=== PATIENT | male | born 1955 | race Caucasian/White ===

== ENCOUNTER 2019-10-19 10:44 | Observation (INO) | payer MEDICARE, OTHER, SELFPAY ==
[2019-10-19] VITALS (17 sets, daily range): BP systolic 85–135; BP diastolic 52–86; PULSE 69–89; RESP 14–27; TEMP 36.6–36.9; O2SAT 93–100; BMI 31.8
--- NOTE | ~2019-10-19 | XR_ITS ---
EXAMINATION: XR chest 1V portable EXAM DATE: 10/19/2019 11:35 INDICATION: Anaphylaxis. TECHNIQUE: Portable AP frontal chest x-ray was obtained. There is no prior study for comparison. FINDINGS: The lungs are clear. There are no pleural effusions. Cardiac silhouette is prominent but magnified on this AP technique. There is no pneumothorax suspected. The bones and soft tissues are unremarkable. IMPRESSION: No acute cardiopulmonary findings. Reviewed, dictated and finalized at location A.
--- NOTE | 2019-10-19 10:44 | ED.ALLEREA ---
HPI - Allergic Reaction General Chief complaint: Allergic Reaction Stated complaint: Bee Sting Time Seen by Provider: 10/19/19 10:44 Source: patient and EMS Mode of arrival: EMS Limitations: clinical condition History of Present Illness HPI narrative: Patient is a 64-year-old with a history of hypertension, hyperlipidemia who presents via EMS for severe allergic reaction. Patient reportedly stung by a bee while he was out walking this morning, initially did fine over the first hour with mild ankle pain at the site of the envenomation, patient felt increasingly diaphoretic, weak, EMS was called and on arrival to patient he was diaphoretic, urticaria throughout body and hypotensive. Patient was given intramuscular epinephrine in the field, IV Decadron, Benadryl without much improvement in his hypotension. On arrival to our facility, patient is diaphoretic, hypotensive, airway is intact. Patient is reporting mild chest pressure. He has some mild aching pain in the left ankle at the site of the envenomation. Patient reports no history of anaphylactic reactions or allergic reactions in the past. Related Data Home Medications Medication Instructions Recorded Confirmed allopurinol 300 mg PO DAILY 10/19/19 amlodipine 5 mg PO DAILY 10/19/19 metoprolol succinate 50 mg PO DAILY 10/19/19 simvastatin 20 mg PO DAILY 10/19/19 Allergies Allergy/AdvReac Type Severity Reaction Status Date / Time No Known Allergies Allergy Verified 10/19/19 10:53 Review of Systems Review of Systems: ROS unobtainable: Yes unobtainable due to medical condition PMFSH Past Medical History Medical History (Updated 10/19/19 @ 12:27 by Rachna Freeman MD) Hyperlipidemia Hypertension Social History Social History (Updated 10/19/19 @ 11:08 by Rachna Freeman MD) Smoking status: Never smoker Alcohol intake: never Substance use: never Gender identity (if verbalized by the patient): Male Exam Narrative: Exam Narrative: GENERAL: Awake, conversant, diaphoretic HEAD: Normocephalic, atraumatic. EYES: PERRLA and EOMI. ENT: Nares clear, no rhinorrhea or epistaxis. Mucous membranes moist. NECK: Supple. CHEST: No respiratory distress, breathing even and non labored HEART: Regular rate, sinus rhythm ABDOMEN:Non distended, non tender EXTREMITIES: Normal range of motion. Mild edema at the left ankle SKIN: Urticaria covering body, chest and thorax NEURO:No focal deficits. Alert and oriented x3 Course Vital Signs Vital signs: Vital Signs Temperature 36.9 C 10/19/19 10:45 Pulse Rate 76 10/19/19 10:45 Respiratory Rate 15 10/19/19 10:45 Pulse Oximetry 96 10/19/19 10:45 Temperature 36.9 C 10/19/19 10:45 Pulse Rate 85 10/19/19 14:00 Respiratory Rate 16 10/19/19 13:40 Blood Pressure 118/80 10/19/19 13:40 Pulse Oximetry 94 10/19/19 13:40 MDM - Allergic Reaction MDM Narrative Medical decision making narrative: Patient presented to the emergency department for evaluation of anaphylactic shock following a bee sting. At the time of initial assessment, airway is intact, patient is hypotensive. No tachycardia. Patient was placed on oxygen via nasal cannula, given additional doses of intramuscular epinephrine. EKG showed some borderline depression without acute ST elevation. Patient was re-dose IV steroids and Benadryl as well as famotidine. Pt also placed on Duoneb. Patient finally had improvement, did require short period of time where he was on an epinephrine infusion, but this was able to be discontinued in the emergency department. Patient remained hemodynamically stable over the course of an hour, did report some increased swelling in his bilateral hands, but overall urticaria that had initially covered his entire chest and thoracic wall had improved. Patient without any recurrent shortness of breath. Given anaphylactic shock, concern for rebound, patient will be admitted to the intensive care unit. Anthony
[2019-10-19] MEDS: methylPREDNISolone SOD SUCC 125 MG VIAL IV PUSH (10:55)
[2019-10-19] MEDS: FAMOTIDINE 20 MG/2 ML VIAL IV PUSH ×2 (10:55→20:43)
[2019-10-19] MEDS: SODIUM CHLORIDE 0.9% IV 1,000 ML 999 ML IV CONT (10:55)
[2019-10-19] MEDS: ALBUTEROL SULFATE NEB 2.5 MG/0.5 ML INH 10 MG INHALATION (10:57)
[2019-10-19] MEDS: EPINEPHrine HCL INJ 1 MG/ML AMPUL 0.3 MG IM ×2 (10:57→13:55)
[2019-10-19] MEDS: IPRATROPIUM BR 0.02% INH SOLN 0.5 MG/2.5 ML VIAL 2 MG INHALATION (10:58)
[2019-10-19 11:10] LABS: Basophils Percent Auto 0.6 % (0.2-1.2); Eosinophils Absolute Auto 0.1 K/mm3 (0-0.3); Eosinophils Percent Auto 0.9 % (0-4.4); Hemoglobin 17.3 g/dL (14.0-18.0); Immature Granulocyte Absolute 0.06 K/mm3 (0.00-0.031); Immature Granulocyte Percent A 0.9 % (0-0.5); Lymphocytes Absolute Auto 2.66 K/mm3 (0.9-3.2); Lymphocytes Percent Auto 39.5 % (18.3-44.2); Mean Corpuscular HGB Conc 34.6 g/dl (32-36); Mean Corpuscular Hemoglobin 33.9 pg (26-34); Mean Corpuscular Volume 97.8 fl (80-100); Mean Platelet Volume 11.9 fl (7.4-10.4); Monocytes Absolute Auto 0.8 K/mm3 (0.1-0.6); Neutrophils Absolute Auto 3.1 K/mm3 (1.3-6.7); Neutrophils Percent Auto 46.1 % (45.5-73.1); Platelet Count Result 248 k/mm3 (150-375); Red Blood Count 5.11 M/mm3 (4.6-6.20); Red Cell Distribution Width 13.4 % (11.5-14.5); White Blood Count 6.7 K/mm3 (4.5-10.0)
[2019-10-19] MEDS: MAGNESIUM SULF 2 GM/WATER 50ML 2 GM/50 ML BAG IVPB (11:13)
[2019-10-19 11:21] LABS: Partial Thromboplastin Time 20.1 SECONDS (22.3-36.8); Prothrombin Time 12.5 Seconds (11.1-14.7)
[2019-10-19 11:25] LABS: Anion Gap 12.9 mmol/L (7-16); Blood Urea Nitrogen 25 mg/dL (9-20); Calcium 8.7 mg/dL (8.4-10.2); Carbon Dioxide 22 mmol/L (22-30); Chloride 106 mmol/L (98-107); Estimated CRCL calculation 66 ml/min; Estimated Glomerular Filt Rate > 60; Glucose 164 mg/dL (75-110); Potassium 3.9 mmol/L (3.4-5.0); Sodium 137 mmol/L (137-145)
[2019-10-19 11:26] LABS: Lactic Acid Reflex 1.8 mmol/L (0.7-2.1)
[2019-10-19] MEDS: ASPIRIN 81 MG CHEWABLE TABLET 324 MG PO (11:35)
[2019-10-19 11:37] LABS: Troponin I < 0.012 ng/mL (0.000-0.034)
--- NOTE | 2019-10-19 12:24 | ECG_ITS ---
Measurements Intervals [place] Rate: 74 P: 33 CT: 161 QRS: -16 QRSD: 99 T: 29 QT: 442 QTc: 491 Interpretive Statements SINUS RHYTHM POSSIBLE LEFT ATRIAL ENLARGEMENT BORDERLINE R WAVE PROGRESSION, ANTERIOR LEADS PROLONGED QT INTERVAL BASELINE ARTIFACT- I, III, AVL ABNORMAL ECG Electronically Signed On 10-19-2019 12:38:07 CDT by Janak Sorto D.O.
--- NOTE | 2019-10-19 12:58 | PC.NURSE ---
Per EDP via verbal order readback. Stop the epi drip at this time. Will continue to monitor Pt. status.
--- NOTE | 2019-10-19 13:20 | PC.NURSE ---
Pt. stated feeling like their allergic reaction was occuring again. EDP notified. EDP ordered via verbal order readback give 0.3 mg of epi 1:1000 IM. See Mar for charting.
[2019-10-19 14:17] LABS: Glucose Point of Care 178 (65-105)
--- NOTE | 2019-10-19 14:47 | WPDCNINT ---
Assessment and Plan Assessment and plan (1) Anaphylactic shock: Code(s): T78.2XXA - Anaphylactic shock, unspecified, initial encounter Status: Acute Assessment and Plan: patient with bee sting while heading back home from walk - patient was complaining of weakness, diaphoresis, difficulty swallowing when at home, hypotensive with systolic in the 60s in the ED requiring epinephrine shots and epinephrine infusion which has been stopped prior to transferring the patient to the ICU - he did receive a shot of epinephrine intramuscularly prior to being transferred to the ICU - currently hemodynamically stable, - will order Solu-Medrol, famotidine and Benadryl - if blood pressures dropped require (2) Bee sting: Qualifiers: Encounter type: initial encounter Injury intent: accidental or unintentional Qualified Code(s): T63.441A - Toxic effect of venom of bees, accidental (unintentional), initial encounter Code(s): T63.441A - Toxic effect of venom of bees, accidental (unintentional), initial encounter Status: Acute Assessment and Plan: patient is allergic be strainin (3) Hyperlipidemia: Qualifiers: Hyperlipidemia type: unspecified Qualified Code(s): E78.5 - Hyperlipidemia, unspecified Code(s): E78.5 - Hyperlipidemia, unspecified Status: Acute Assessment and Plan: patient on simvastatin at home, will hold for today (4) Essential hypertension: Code(s): I10 - Essential (primary) hypertension Status: Acute Assessment and Plan: patient amlodipine, metoprolol and benazepril at home - patient was hypotensive secondary to anaphylaxis, will hold all antihypertensives at this time (5) GERD (gastroesophageal reflux disease): Code(s): K21.9 - Gastro-esophageal reflux disease without esophagitis Status: Acute Assessment and Plan: continue famotidine (6) Gout: Code(s): M10.9 - Gout, unspecified Status: Acute Assessment and Plan: patient on allopurinol at home, will hold today Additional Plan discussed with patient and his at bedside updated them with patient's condition and plan of care. I did discuss with them had regarding his stay in the ICU as we would to monitor him closely due to severe hypotension secondary to the anaphylaxis due to the bee sting. Code status: Full code critical care time spent: 41 minutes Due to a high probability of clinically significant, life threatening deterioration, the patient required my highest level of preparedness to intervene emergently and I personally spent this critical care time directly and personally managing the patient. This critical care time included obtaining a history; examining the patient; pulse oximetry; ordering and review of studies; arranging urgent treatment with development of a management plan; evaluation of patient's response to treatment; frequent reassessment; and discussions with other providers. It was exclusive of separately billable procedures and treating other patients and teaching time. Please see Assessment and Plan section and the rest of the note for further information on patient assessment and treatment [employer] Consult Note Consult date: 10/19/19 Time Seen: 14:32 Reason for consult: bee sting, anaphylaxis, hypotension HPI: Mary Bustamante is a 64 year old male with significant past medical history of hypertension, hyperlipidemia with GERD, gout to the ED via EMS with severe allergic reaction after bee sting. patient was stung by a bee this morning on his way back from his walk, he felt pain at the site of the bee sting on his left ankle and then developed hives / urticaria, was diaphoretic, had some difficulty swallowing, felt weak and dizzy. EMS was called and patient was found to be hypotensive, was given intramuscular epinephrine , IV Decadron and IV Benadryl without much improvement in the hypotension. Upon arrival to
--- NOTE | 2019-10-19 14:54 | ADMGEN ---
This patient, Mary Bustamante, was admitted to Intensive Care Unit-11. Patient/family oriented to hospital policies and general routines including ID bracelet, bed and alarms, visiting hours, pain management, procedures, bathroom and other care routines, personal items, smoking policy, room service/diet, and visiting hours. Valuables list has been completed. Information on how to activate the Rapid Response Team has been discussed. Patient/Family are encouraged to report perceived risks to care and to ask questions if they do not understand what they are told or what they should do.
[2019-10-19] MEDS: methylPREDNISolone SOD SUCC 125 MG VIAL 60 MG IV PUSH ×2 (15:35→20:42)
[2019-10-19] MEDS: diphenhydrAMINE HCl INJ 50 MG/ML VIAL 25 MG IV PUSH ×2 (15:36→23:06)
[2019-10-19 15:46] LABS: Troponin I < 0.012 ng/mL (0.000-0.034)
--- NOTE | 2019-10-19 17:37 | PM.IMHP ---
H&P: HPI History of Present Illness Chief complaint: Anaphylactic shock Narrative: Mary Bustamante is a 64 year old male And was out taking a walk today. He felt something touch his head and he swung at some type of insect and he thought it flu way. He then felt a sting on his left inner ankle. And went through his sock and shoe he said. He swung at it again any saw something black fly way. The patient did not think that it was a be but may be something else. He stated that he has been stung by many B's and never had any problems with that. The patient stated that he just felt funny and that he had numbness and tingling to his hands. so he thought he better walk back to his car . the patient then felt like his chest was tight And thought that he was dehydrated. He called his and she suggested to call his doctor. once the patient got home his talked to the medical customer service representative and she suggested that they go to the emergency room. The activated the EMS. Patient was diaphoretic and had urticarial of his body. Patient was given epinephrine in the field, IV Decadron Benadryl. He was hypotensive in the field. He was given neb treatment, epinephrine x3, Solu-Medrol Pepcid, and magnesium. the investigation division lieutenant had been consulted has already seen the patient. He has been placed in ICU. Date of service 10/19/2019 Review of Systems Review of Systems: All systems reviewed & are unremarkable except as noted in HPI and below Constitutional: Constitutional: Reports as per HPI and Reports no additional constitutional complaints Eyes: Eyes: Reports as per HPI and Reports no additional eye complaints ENT: Reports system reviewed and no additional complaints, except as documented and Reports Normal hearing present Cardiovascular: Cardiovascular: Reports no additional cardiovascular complaints Respiratory: Respiratory: Reports no additional respiratory complaints and Reports no additional respiratory complaints Gastrointestinal: Gastrointestinal: Reports as per HPI and Reports no additional gastrointestinal complaints Musculoskeletal: Musculoskeletal: Reports no additional musculoskeletal complaints Integumentary/Breasts: Skin/Breast: Reports system reviewed and no additional complaints, except as docu and Reports as per HPI Neurologic: Reports system reviewed and no additional complaints, except as documented, Reports as per HPI and Reports Normal hearing present Psychiatric: Psychiatric: Reports no additional psychiatric complaints and Reports as per HPI Endocrine: Endocrine: Reports no additional endocrine complaints Hematologic/Lymphatic: Hematologic/Lymphatic: Reports no additional hematologic/lymphatic complaints Allergic/Immunologic: Allergic/Immunologic: Reports no additional allergic/immunologic complaints [facility] Past Medical History Medical History (Updated 10/19/19 @ 17:48 by Magalis Love NP) Hyperlipidemia Hypertension Surgical History Surgical History (Updated 10/19/19 @ 17:54 by Magalis Love NP) H/O rhinoplasty Family History Family History Mother Heart disease Cerebrovascular accident Father Diabetes mellitus Dementia Social History Social History (Updated 10/19/19 @ 17:58 by Magalis Love NP) Social History: patient is to Monica who is a durable power collections attorney for healthcare. Patient desires to be a full code. the patient has 3 children. 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 he has 1 drink once daily. a glass are wine or mixed drink. Smoking status: Never smoker Second hand tobacco smoke exposure: No Alcohol intake: current Substance use: never Substance use type: does not use Living arrangements: with family Occupation/Education: retired Gender identity (if verbalized by the patient): Male Spiritual care concerns:
[2019-10-19] MEDS: diphenhydrAMINE HCl CAP 25 MG CAPSULE (18:39)
[2019-10-20] VITALS (8 sets, daily range): BP systolic 112–156; BP diastolic 64–87; PULSE 60–73; RESP 12–20; TEMP 36.2–36.8; O2SAT 92–99
[2019-10-20] MEDS: methylPREDNISolone SOD SUCC 125 MG VIAL 60 MG IV PUSH ×4 (02:55→21:03)
[2019-10-20] MEDS: diphenhydrAMINE HCl INJ 50 MG/ML VIAL 25 MG IV PUSH ×6 (02:56→23:06)
[2019-10-20 04:37] LABS: Basophils Percent Auto 0.1 % (0.2-1.2); Eosinophils Percent Auto 0.1 % (0-4.4); Hemoglobin 16.3 g/dL (14.0-18.0); Immature Granulocyte Absolute 0.09 K/mm3 (0.00-0.031); Immature Granulocyte Percent A 0.6 % (0-0.5); Lymphocytes Absolute Auto 0.73 K/mm3 (0.9-3.2); Mean Corpuscular HGB Conc 34.7 g/dl (32-36); Mean Corpuscular Hemoglobin 33.8 pg (26-34); Mean Corpuscular Volume 97.5 fl (80-100); Mean Platelet Volume 11.8 fl (7.4-10.4); Monocytes Absolute Auto 0.3 K/mm3 (0.1-0.6); Monocytes Percent Auto 1.8 % (2.6-8.5); Neutrophils Absolute Auto 13.5 K/mm3 (1.3-6.7); Neutrophils Percent Auto 92.4 % (45.5-73.1); Platelet Count Result 214 k/mm3 (150-375); Red Blood Count 4.82 M/mm3 (4.6-6.20); Red Cell Distribution Width 13.2 % (11.5-14.5); White Blood Count 14.6 K/mm3 (4.5-10.0)
[2019-10-20 04:55] LABS: Alanine Aminotransferase 16 U/L (4-50); Albumin Level 3.7 g/dL (3.5-5.1); Alkaline Phosphatase 47 U/L (38-126); Anion Gap 8.7 mmol/L (7-16); Aspartate Amino Transferase 22 U/L (17-59); Bilirubin,Total 0.6 mg/dL (0.2-1.3); Blood Urea Nitrogen 18 mg/dL (9-20); Calcium 8.6 mg/dL (8.4-10.2); Carbon Dioxide 24 mmol/L (22-30); Chloride 107 mmol/L (98-107); Estimated CRCL calculation 88 ml/min; Estimated Glomerular Filt Rate > 60; Glucose 162 mg/dL (75-110); Magnesium 2.2 mg/dL (1.6-2.3); Phosphorus 3.3 mg/dL (2.5-4.5); Potassium 4.7 mmol/L (3.4-5.0); Sodium 135 mmol/L (137-145)
[2019-10-20] MEDS: FAMOTIDINE 20 MG/2 ML VIAL IV PUSH ×2 (09:20→21:02)
[2019-10-20] MEDS: allopurinoL 300 MG TABLET PO (09:20)
--- NOTE | 2019-10-20 13:56 | WPDINTPN ---
Progress Note: A&P Assessment and Plan (1) Anaphylactic shock: Code(s): T78.2XXA - Anaphylactic shock, unspecified, initial encounter Status: Acute Assessment and Plan: RESOLVED - patient presented on 10/18 with bee sting while heading back home from walk, started having weakness, diaphoresis, difficulty swallowing when he reached home home. EMS was called and patient was found to behypotensive with systolic in the 60s - status post epinephrine by EMS and in the ER. - Currently on Solu-Medrol, famotidine and Benadryl with resolution of symptoms - currently hemodynamically stable, (2) Bee sting: Qualifiers: Encounter type: initial encounter Injury intent: accidental or unintentional Qualified Code(s): T63.441A - Toxic effect of venom of bees, accidental (unintentional), initial encounter Code(s): T63.441A - Toxic effect of venom of bees, accidental (unintentional), initial encounter Status: Acute Assessment and Plan: bee sting added as an allergy (3) Hyperlipidemia: Qualifiers: Hyperlipidemia type: unspecified Qualified Code(s): E78.5 - Hyperlipidemia, unspecified Code(s): E78.5 - Hyperlipidemia, unspecified Status: Acute Assessment and Plan: restart patient on simvastatin which is home medication (4) Essential hypertension: Code(s): I10 - Essential (primary) hypertension Status: Acute Assessment and Plan: blood pressures have been slightly elevated, will start antihypertensive (5) GERD (gastroesophageal reflux disease): Qualifiers: Esophagitis presence: without esophagitis Qualified Code(s): K21.9 - Gastro-esophageal reflux disease without esophagitis Code(s): K21.9 - Gastro-esophageal reflux disease without esophagitis Status: Acute Assessment and Plan: continue famotidine (6) Gout: Qualifiers: Gout site: unspecified site Gout etiology: other secondary cause Chronicity: chronic Presence of tophus: without tophus Qualified Code(s): M1A.40X0 - Other secondary chronic gout, unspecified site, without tophus (tophi) Code(s): M10.9 - Gout, unspecified Status: Chronic Assessment and Plan: restarted on allopurinol Additional Plan discussed with patient and his and updated them with patient's condition and plan of care. I answered all questions Code status: Full code critical care time spent: 31 minutes Due to a high probability of clinically significant, life threatening deterioration, the patient required my highest level of preparedness to intervene emergently and I personally spent this critical care time directly and personally managing the patient. This critical care time included obtaining a history; examining the patient; pulse oximetry; ordering and review of studies; arranging urgent treatment with development of a management plan; evaluation of patient's response to treatment; frequent reassessment; and discussions with other providers. It was exclusive of separately billable procedures and treating other patients and teaching time. Please see Assessment and Plan section and the rest of the note for further information on patient assessment and treatment Subjective Date/time seen: 10/20/19 13:56 Interval history: Reason for consult: bee sting, anaphylaxis, hypotension 10/20/2019: Patient seen and examined this morning in the ICU. Blood pressures have been elevated, patient denies any swelling of the tongue, throat, difficulty swallowing, increased drooling. Urticaria and hives/rash on his torso has resolved. Patient denies any cough, shortness of breath, abdominal pain, nausea, vomiting, diarrhea. O2 sats have been good on room air, urine output has been adequate Review of Systems Review of Systems: All systems reviewed & are unremarkable except as noted in HPI and below Exam Const: General: comfortable and no
--- NOTE | 2019-10-20 14:00 | PC.NURSE ---
This patient, Mary Bustamante, was received from ICU on 10/20/19 at 1400. Personal belongings list checked and signed. Patient/family oriented to unit policies and routines.
[2019-10-20] MEDS: SIMVASTATIN 20 MG TABLET PO (21:02)
[2019-10-21] MEDS: diphenhydrAMINE HCl INJ 50 MG/ML VIAL 25 MG IV PUSH ×2 (03:04→06:45)
[2019-10-21] MEDS: methylPREDNISolone SOD SUCC 125 MG VIAL 60 MG IV PUSH ×2 (03:05→08:48)
[2019-10-21 06:00] VITALS: BP 142/85; PULSE 66; RESP 20; TEMP 36.2; O2SAT 99
[2019-10-21] MEDS: allopurinoL 300 MG TABLET PO (08:47)
[2019-10-21] MEDS: FAMOTIDINE 20 MG/2 ML VIAL IV PUSH (08:47)
[2019-10-21] MEDS: lisinopriL 20 MG TABLET PO (08:47)
[2019-10-21] MEDS: amLODIPine BESYLATE 5 MG TABLET PO (08:47)
[2019-10-21 08:48] VITALS: PULSE 62
[2019-10-21] MEDS: METOPROLOL SUCCINATE EXT REL 50 MG TABCR PO (08:48)
--- NOTE | 2019-10-21 10:23 | PM.DS ---
DS: Admitting Diagnosis Admitting Diagnosis Admitting Diagnosis: Anaphylactic shock, unspecified, initial encounter DS: Discharge Diagnosis Discharge Diagnosis (1) Anaphylactic shock: Code(s): T78.2XXA - Anaphylactic shock, unspecified, initial encounter Status: Acute Assessment and Plan: I did not see any post pharyngeal swelling. Airway appears to be patent. I spoke with the patient and explained to him that he will need an EpiPen whenever he is discharged. Also he will need to go to an customer quality specialist as well. Perhaps taken desensitize him. Continue with Pepcid, Benadryl, and Solu-Medrol. (2) Hyperlipidemia: Qualifiers: Hyperlipidemia type: unspecified Qualified Code(s): E78.5 - Hyperlipidemia, unspecified Code(s): E78.5 - Hyperlipidemia, unspecified Status: Acute Assessment and Plan: Continue with Zocor. (3) Essential hypertension: Code(s): I10 - Essential (primary) hypertension Status: Acute Assessment and Plan: I explained to the patient his blood pressure was low earlier and was tachycardic because he had anaphylactic shock we are monitoring him for any rebound anaphylactic shock some going to hold his blood pressure medicine and do p.r.n. hydralazine. (4) GERD (gastroesophageal reflux disease): Qualifiers: Esophagitis presence: without esophagitis Qualified Code(s): K21.9 - Gastro-esophageal reflux disease without esophagitis Code(s): K21.9 - Gastro-esophageal reflux disease without esophagitis Status: Acute Assessment and Plan: Patient is on Pepcid. (5) Gout: Qualifiers: Gout site: unspecified site Gout etiology: other secondary cause Chronicity: chronic Presence of tophus: without tophus Qualified Code(s): M1A.40X0 - Other secondary chronic gout, unspecified site, without tophus (tophi) Code(s): M10.9 - Gout, unspecified Status: Chronic Assessment and Plan: Continue with allopurinol DS: Summary Hospital Course Reason for hospitalization: Narrative: Mary Bustamante is a 64 year old male And was out taking a walk today. He felt something touch his head and he swung at some type of insect and he thought it flu way. He then felt a sting on his left inner ankle. And went through his sock and shoe he said. He swung at it again any saw something black fly way. The patient did not think that it was a be but may be something else. He stated that he has been stung by many B's and never had any problems with that. The patient stated that he just felt funny and that he had numbness and tingling to his hands. so he thought he better walk back to his car . the patient then felt like his chest was tight And thought that he was dehydrated. He called his and she suggested to call his doctor. once the patient got home his talked to the quality engineer medical device and she suggested that they go to the emergency room. The activated the EMS. Patient was diaphoretic and had urticarial of his body. Patient was given epinephrine in the field, IV Decadron Benadryl. He was hypotensive in the field. He was given neb treatment, epinephrine x3, Solu-Medrol Pepcid, and magnesium. the health program analyst had been consulted has already seen the patient. He has been placed in ICU. Date of service 10/19/2019 Hospital Course: I did not see any post pharyngeal swelling. Airway appears to be patent. I spoke with the patient and explained to him that he will need an EpiPen whenever he is discharged. Also he will need to go to an customer quality specialist as well. Perhaps taken desensitize him. Continue with Pepcid, Benadryl, and Solu-Medrol. patient remained clinically stable while in the hospital and today patient has no complaints of shortness of breath or wheeze was able to tolerate his breakfast, will discharge the patient on tapering dose of prednisone, Benadryl and Pepcid. will also give patient Epi-
== END 2019-10-21 11:35 | disposition home or self-care (01) ==
LOC: ANHED 12:27 → ANHICU 14:40 → ANH2MED 10-20 22:52 → ANHICU 10-24 15:26
PROVIDERS: Internal Medicine; Admitting Provider Internal Medicine; Emergency Provider Emergency Medicine; PCP Internal Medicine; Visit Provider Family Medicine
DX: T78.2XXA Anaphylactic shock, unspecified, initial encounter (principal); T63.441A Toxic effect of venom of bees, accidental (unintentional), initial encounter; E78.5 Hyperlipidemia, unspecified; I10 Essential (primary) hypertension; K21.9 Gastro-esophageal reflux disease without esophagitis; M10.9 Gout, unspecified
CPT/HCPCS: 36415; 71045; 80048; 80053; 83605; 83735; 84100; 84484; 85025; 85610; 85730; 93005; 94640; 96365; 96366; 96367; 96372; 96375; 96376; 99285; A9270; G0378; J0171; J1200; J2930; J3475; J7030; J7060

== ENCOUNTER 2021-10-15 10:17 | Emergency (ER) | payer MEDICARE, SELFPAY ==
--- NOTE | ~2021-10-15 | XR_ITS ---
EXAMINATION: XR knee LT 3V DATE: 10/15/2021 11:35 INDICATION: Left knee pain post fall TECHNIQUE: Anteroposterior, sunrise and crosstable lateral views of the left knee were obtained COMPARISON: None. FINDINGS: Alignment is normal. No fracture. Joint spaces appear normal on nonweightbearing imaging. Tiny dinora nal osteophytes at the patellofemoral articulation. No joint effusion/layering lipohemarthrosis. Mild soft tissue swelling at the anteromedial knee. IMPRESSION: 1. No left knee joint effusion or acute osseous abnormality. Reviewed, dictated and finalized at location A.
--- NOTE | ~2021-10-15 | XR_ITS ---
EXAMINATION: XR elbow LT min 3V DATE: 10/15/2021 11:35 INDICATION: Left elbow injury post fall TECHNIQUE: Anteroposterior, two oblique and lateral views of the left elbow were obtained. COMPARISON: None. FINDINGS: Alignment is normal. No fracture or joint effusion. Mild osteoarthritis with mild nonuniform joint sp chaitanya narrowing at the left elbow. Soft tissues are unremarkable. IMPRESSION: 1. Mild osteoarthritis at the left elbow. No joint effusion or acute osseous abnormality. Reviewed, dictated and finalized at location A. IMPRESSION: 1. Mild osteoarthritis at the left elbow. No joint effusion or acute osseous ab normality.
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
[2021-10-15 10:20] VITALS: BP 125/91; PULSE 89; TEMP 36; O2SAT 99
[2021-10-15] MEDS: TETANUS,DIPHTHERIA,AC PERTUSSIS ADULT (0.5 ML) BOOSTRIX IM (11:19)
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
[2021-10-15 12:43] VITALS: BP 122/70; PULSE 70; RESP 16; TEMP 36.3; O2SAT 100
== END 2021-10-15 12:45 | disposition home or self-care (01) ==
PROVIDERS: Emergency Provider Nurse Practitioner Family; PCP Internal Medicine
DX: S22.42XA Multiple fractures of ribs, left side, initial encounter for closed fracture (principal); S40.012A Contusion of left shoulder, initial encounter; S50.02XA Contusion of left elbow, initial encounter; S80.02XA Contusion of left knee, initial encounter; V18.0XXA Pedal cycle driver injured in noncollision transport accident in nontraffic accident, initial encounter; I10 Essential (primary) hypertension; Z23 Encounter for immunization
CPT/HCPCS: 71100; 73030; 73080; 73562; 90471; 90715; 99284; A4565

== ENCOUNTER 2021-10-18 15:12 | Emergency (ER) | payer MEDICARE, SELFPAY ==
--- NOTE | ~2021-10-18 | XR_ITS ---
XR humerus LT DATE: 10/18/2021 16:07 INDICATION: Left arm pain. Recent injury. TECHNIQUE: AP and lateral views COMPARISON: None FINDINGS: Mild degenerative spurring at the left, clavicular joint. No fracture or dislocation, perio steal reaction or bone destruction of the left humerus. IMPRESSION: No fracture or dislocation of left humerus Reviewed, dictated and finalized at location B.
--- NOTE | ~2021-10-18 | CT_ITS ---
EXAMINATION: CT brain wo con DATE: 10/18/2021 16:16 INDICATION: Head injury. TECHNIQUE: Computed tomography (CT) of the head was performed without intravenous contrast. The mA wa s adjusted according to patient size. Iterative reconstruction technique was employed. The dose-lengt h product was 605.33 mGy-cm. COMPARISON: None FINDINGS: There is no intracranial hemorrhage, acute infarction, or abnormal intracranial mass lesion . The ventricles are normal in size. There is mild mucosal thickening in the paranasal sinuses. The o rbits are normal. The mastoid air cells are normal. IMPRESSION: 1. Normal brain. Reviewed, dictated and finalized at location A. IMPRESSION: 1. Normal brain.
--- NOTE | ~2021-10-18 | CT_ITS ---
EXAMINATION: CT cervical spine wo con DATE: 10/18/2021 16:16 INDICATION: Head injury. Left arm pain. Paresthesias. TECHNIQUE: Computed tomography (CT) of the cervical spine was performed without intravenous contrast. Automated exposure control and iterative reconstruction technique were employed. The dose-length pro duct was 487.03 mGy-cm. COMPARISON: None FINDINGS: There is hypolordosis of cervical spine. Vertebral body heights are normal. There is mildly decreased disc height at C3-C4 and moderately decreased disc height from C4-C5 through C7-T1. The fo llowing disc levels are specifically discussed: C2-C3: There is no uncovertebral joint osteoarthritis. There is mild bilateral facet joint osteoarthr itis. There is no neural foraminal stenosis. There is no central canal stenosis. C3-C4: There is mild bilateral uncovertebral joint osteoarthritis. There is mild right and moderate l eft facet joint osteoarthritis. There is mild left neural foraminal stenosis. There is no central can al stenosis. C4-C5: There is mild right and severe left uncovertebral joint osteoarthritis. There is mild right an d severe left facet joint osteoarthritis. There is moderate left neural foraminal stenosis. There is mild central canal stenosis. C5-C6: There is severe bilateral uncovertebral joint osteoarthritis. There is mild bilateral facet jose miguel int osteoarthritis. There is moderate right and mild left neural foraminal stenosis. There is mild ce ntral canal stenosis. C6-C7: There is severe bilateral uncovertebral joint osteoarthritis. There is no facet joint osteoart hritis. There is mild bilateral neural foraminal stenosis. There is mild central canal stenosis. C7-T1: There is no uncovertebral joint osteoarthritis. There is mild bilateral facet joint osteoarthr itis. There is no neural foraminal stenosis. There is no central canal stenosis. IMPRESSION: 1. No fracture. 2. Moderate cervical spondylosis. Reviewed, dictated and finalized at location A.
[2021-10-18 15:18] VITALS: BP 172/100; PULSE 77; RESP 16; TEMP 36.4; O2SAT 99
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
[2021-10-18 16:55] VITALS: BP 143/95; PULSE 75; RESP 16; O2SAT 98
== END 2021-10-18 17:00 | disposition home or self-care (01) ==
PROVIDERS: Emergency Provider Emergency Medicine; PCP Internal Medicine
DX: M54.12 Radiculopathy, cervical region (principal); E78.5 Hyperlipidemia, unspecified; I10 Essential (primary) hypertension
CPT/HCPCS: 70450; 72125; 73060; 99284

== ENCOUNTER 2022-01-13 12:46 | Outpatient (CLI) | payer MEDICARE, SELFPAY | END 2022-01-13 12:47 | disposition home or self-care (01) | LOC: ANHAUDASC 12:48 | PROVIDERS: PCP Family Medicine | DX: H90.3 Sensorineural hearing loss, bilateral (principal) | CPT/HCPCS: 92557; 92567 ==

== ENCOUNTER 2022-09-25 08:00 | Outpatient (RCR) | payer MEDICARE, SELFPAY ==
[2022-08-14 15:05] VITALS: BP_SYST 100
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
--- NOTE | 2022-09-25 08:51 | PTOPDC ---
Assessment and note entered by Alicia Menchaca, PT Evaluation Information Assessment Status Discharge Diagnosis rotator cuff syndrome L Onset September 2021 Subjective Information shoulder is better; continues to have problems with sleeping and waking up when lie on L side; can reach and use arm better and less pain; can reach to top shelf in kitchen; reaching behind back is still a problem; is able to put on his shirt; golfing is better, doing the exercises at home, sometimes have back pain with the arm exercises; He requested his d/c report go to his general dr that is local--Dr Iglesias; EDUCATION: monitor position of back with exercises; HEP Reported Pain Level Pain Score Self Report Additional Pain Score Comments pain range in the past week 0-5/10; pain is deep in shoulder joint increase with sleeping and lie on shoulder,awaken with pain 3x/night; reaching behind back decrease pain: hot shower Assessment PT Clinical Summary Mary has received 8 PT sessions. Compared to the initial evaluation he has improved in all areas: pain rating at the worst from 8 to 5/10; sleeping tolerance, awaken 8 to 3x/night due to shoulder pain; using arm with activities of reaching into cabinet, putting on shirt, putting away groceries; increase shoulder active ROM and strength of flexion, abduction and IR motions; education completed for posture with exercises and home exercise program. The goals were achieved, except pain rating at the worst and sleeping tolerance. Discharge PT services. Plan of Care PT Services Indicated No
== END 2022-09-26 13:51 | disposition home or self-care (01) ==
LOC: ANHPT 08:00
PROVIDERS: PCP Family Medicine
DX: M75.102 Unspecified rotator cuff tear or rupture of left shoulder, not specified as traumatic (principal)
CPT/HCPCS: 97110; 97140; 97161; 97530

== ENCOUNTER 2022-09-27 20:54 | Emergency (ER) | payer MEDICARE, SELFPAY ==
[2022-09-27] VITALS (7 sets, daily range): BP systolic 100–120; BP diastolic 65–82; PULSE 73–77; RESP 15–18; TEMP 36.9; O2SAT 97–99
[2022-09-27 22:15] LABS: Basophils Absolute Auto 0.1 K/mm3 (0.0-0.1); Basophils Percent Auto 1.4 % (0.2-1.2); Eosinophils Absolute Auto 0.1 K/mm3 (0-0.3); Eosinophils Percent Auto 1.4 % (0-4.4); Hematocrit 49.1 % (42.0-52.0); Hemoglobin 16.5 g/dL (14.0-18.0); Immature Granulocyte Percent A 1.3 % (0-0.5); Lymphocytes Absolute Auto 2.72 K/mm3 (0.9-3.2); Lymphocytes Percent Auto 34.9 % (18.3-44.2); Mean Corpuscular HGB Conc 33.6 g/dl (32-36); Mean Corpuscular Hemoglobin 33.4 pg (26-34); Mean Corpuscular Volume 99.4 fl (80-100); Mean Platelet Volume 11.4 fl (7.4-10.4); Monocytes Absolute Auto 0.8 K/mm3 (0.1-0.6); Platelet Count Result 219 k/mm3 (150-375); Red Blood Count 4.94 M/mm3 (4.6-6.20); White Blood Count 7.8 K/mm3 (4.5-10.0)
[2022-09-27 22:15] LABS: Appearance Urine Clear (Clear); Bilirubin Urine Negative (Negative); Blood Urine Negative (Negative); Color Urine Yellow (Yellow); Glucose Urine UA Negative (Negative); Ketones Urine Negative (Negative); Leukocyte Esterase Ur Negative LEU/UL (Negative); Nitrate Urine Negative (Negative); Protein Urine Negative (Negative); Specific Grav Ur 1.003 (1.001-1.035); Urobilinogen Urine 0.2 mg/dL (<2.0); pH Urine 5.5 (5.0-9.0)
[2022-09-27 22:17] LABS: Add Urine Microscopic? YES
--- NOTE | 2022-09-27 22:29 | PC.NURSE ---
pt is calm and cooperative. pt currently is denying SI.
[2022-09-27 22:30] LABS: Alanine Aminotransferase 27 U/L (6-50); Albumin Level 4.4 g/dL (3.5-5.1); Alkaline Phosphatase 73 U/L (38-126); Anion Gap 8 mmol/L (8-16); Aspartate Amino Transferase 30 U/L (17-59); Bilirubin,Total 0.8 mg/dL (0.2-1.3); Blood Urea Nitrogen 22 mg/dL (9-20); Carbon Dioxide 28 mmol/L (22-30); Chloride 105 mmol/L (98-107); Estimated CRCL calculation 68 ml/min; Estimated Glomerular Filt Rate > 60; Glucose 133 mg/dL (65-110); Potassium 3.8 mmol/L (3.4-5.0); Sodium 141 mmol/L (137-145)
[2022-09-27 22:31] LABS: Acetaminophen < 10 ug/mL (10-30); Ethanol 165 mg/dL (<10)
[2022-09-27 22:50] LABS: Amphetamine Screen Urine Negative (Negative); Barbiturate Screen Urine Negative (Negative); Benzodiazepines Screen Urine Negative (Negative); Cannabinoid Screen Urine Negative (Negative); Cocaine Screen Urine Negative (Negative); Methadone Screen Urine Negative (Negative); Opiate Screen Urine Negative (Negative); Phencyclidine Screen Urine Negative (Negative)
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
[2022-09-28] VITALS (18 sets, daily range): BP systolic 106–120; BP diastolic 62–84; PULSE 77; RESP 18; TEMP 36.6–37; O2SAT 93–99
[2022-09-28 03:02] LABS: Ethanol 87 mg/dL (<10)
[2022-09-28 04:05] LABS: Ethanol 57 mg/dL (<10)
== END 2022-09-28 06:21 | disposition home or self-care (01) ==
PROVIDERS: Emergency Provider Emergency Medicine; PCP Family Medicine
DX: F10.129 Alcohol abuse with intoxication, unspecified (principal); E78.5 Hyperlipidemia, unspecified; I10 Essential (primary) hypertension; Y90.6 Blood alcohol level of 120-199 mg/100 ml; Z79.899 Other long term (current) drug therapy
CPT/HCPCS: 36415; 80053; 80307; 81001; 84443; 85025; 99283